=== PATIENT | female | born 1960 | race African-American/Black ===

== ENCOUNTER 2020-02-18 01:21 | Outpatient (CLI) | payer MEDICARE, MEDICAID, SELFPAY ==
[2020-02-18 19:24] LABS: SARS-CoV-2 RNA PCR Negative
== END 2020-02-18 01:22 | disposition home or self-care (01) ==
LOC: ANHCOVIDDT 01:21
PROVIDERS: PCP Internal Medicine; Visit Provider Internal Medicine Gastroenterology
DX: Z01.812 Encounter for preprocedural laboratory examination (principal); Z20.828 Contact with and (suspected) exposure to other viral communicable diseases
CPT/HCPCS: 87635; C9803; U0003

== ENCOUNTER 2020-02-20 01:28 | Day surgery (SDC) | payer MEDICARE, MEDICAID, SELFPAY ==
[2020-02-17 14:45] VITALS: BMI 41.6
[2020-02-20 06:27] VITALS: BP 140/94; PULSE 63; RESP 16; TEMP 36.3; O2SAT 100; BMI 32.5
[2020-02-20] MEDS: LACTATED RINGERS 1,000 ML 150 ML IV CONT (06:40)
--- NOTE | 2020-02-20 07:16 | P.PNAN_ITS ---
Anes - Initial Pre Proc Eval Procedure: Operation Date: 02/20/20 07:30 Proposed Procedures p Esophagogastroduodenoscopy&Screen Colon - Stewart Villegas MD Date/Time: 02/20/20 07:16 Surgeon: Stewart Villegas MD Pre Op Diagnosis: Hx Of Colon CA, GERD Patient Data Age: 59 Gender: F Height: 5 ft 6 in Weight: 91.5 kg Last Vital Signs Temp 97.3 F L 02/20/20 06:27 Pulse 63 02/20/20 06:27 Resp 16 02/20/20 06:27 BP 140/94 H 02/20/20 06:27 Pulse Ox 100 02/20/20 06:27 Allergies Allergy/AdvReac Type Severity Reaction Status Date / Time No Known Drug Allergies Allergy Unknown Unknown Verified 02/20/20 06:25 Home Medications Medication Instructions Recorded Confirmed Type ergocalciferol (vitamin D2) 1,250 50,000 unit PO MONTHLY 05/17/19 02/20/20 History mcg (50,000 unit) capsule fenofibrate 160 mg tablet 160 mg PO DAILY #30 tablet 11/21/19 02/20/20 Rx alprazolam 2 mg PO DAILY 02/17/20 02/20/20 History omeprazole 20 mg PO DAILY 02/17/20 02/20/20 History quetiapine 300 mg PO HS 02/17/20 02/20/20 History venlafaxine 75 mg PO DAILY PRN 02/17/20 02/20/20 History Patient hx anesthesia problems: none Family hx anesthesia problems: none PMFSH Social History Social History (Reviewed 12/17/19 @ 14:10 by Chiquita Rey [facility]) Smoking status: Never smoker Second hand tobacco smoke exposure: No Alcohol intake: current Substance use: never Substance use type: does not use Living arrangements: with family Spiritual care concerns: No Anes - Eval Final PreProcedure Day of Procedure 02/20/20 07:16 Patient weight: obese Heart: regular rate and rhythm Lungs: clear to auscultation Airway: Mallampati scale (upper front loose) class II Neurological: alert and oriented Last oral intake: >/= 8 hours ASA classification: III Emergent: no Anesthetic plan: proceed Anesthesia type and monitoring: general GIVS and standard monitoring Informed Consent: The patient's anesthetic plan and its attendant risks and benefits were discussed with the patient/family/POA. Questions were solicited and answers provided to the satisfaction of the patient/family/POA.
[2020-02-20 07:57] VITALS: BP 110/74; PULSE 68; RESP 19; O2SAT 98
--- NOTE | 2020-02-20 08:00 | WPDGICN ---
Assessment and Plan Assessment and plan (1) Personal history of other malignant neoplasm of large intestine: Code(s): Z85.038 - Personal history of other malignant neoplasm of large intestine Status: Acute Assessment and Plan: Patient has a history of colon cancer status post resection. Plan is for surveillance colonoscopy now and at 3-5 year intervals in the future. (2) Gastro-esophageal reflux disease without esophagitis: Code(s): K21.9 - Gastro-esophageal reflux disease without esophagitis Status: Acute Assessment and Plan: Patient with a history of GE reflux disease. She has a history of esophageal ulceration. Plan is for EGD to assess this at the present time period is uncertain how this relates to her current pain. Continue omeprazole 20 mg p.o. daily. (3) Bipolar disorder, current episode depressed, mild or moderate severity, unspecified: Code(s): F31.30 - Bipolar disorder, current episode depressed, mild or moderate severity, unspecified Status: Acute (4) Chronic hepatitis C without hepatic coma: Code(s): B18.2 - Chronic viral hepatitis C Status: Acute Assessment and Plan: Hepatitis C apparently followed at [facility] in felt to be treated. Continued follow-up with their service advised. Additional Plan Patient does report pain that radiates down her left leg. See adequate should be considered. Patient will follow up with primary care service for evaluation of this. GI Consult Note Consult date/time: 02/20/20 08:00 HPI: Ruba Ham is a 59 year old female Seen in evaluation at the request of Dr Persaud. patient complains of pain in her side. She also has a pain that radiates down the back of her left leg. Patient has a history of colon cancer resected in 1999 now 11. She has been treated for GE reflux disease she does note occasional dysphagia endoscopy in 2013 revealed ulcerative esophagitis. She recently is status post treatment for hepatitis C at [facility]. She continues to take omeprazole 20 mg p.o. daily without relief of symptoms. She is referred today for GI endoscopy to evaluate her known history of GE reflux disease and distant history of colon cancer. Review of Systems Review of Systems: All systems reviewed & are unremarkable except as noted in HPI and below PMFSH Social History Social History Smoking status: Never smoker Second hand tobacco smoke exposure: No Alcohol intake: current Substance use: never Substance use type: does not use Living arrangements: with family Spiritual care concerns: No Meds Home Medications and Allergies Home Medications Medication Instructions Recorded Confirmed Type ergocalciferol (vitamin D2) 1,250 50,000 unit PO MONTHLY 05/17/19 02/20/20 History mcg (50,000 unit) capsule fenofibrate 160 mg tablet 160 mg PO DAILY #30 tablet 11/21/19 02/20/20 Rx alprazolam 2 mg PO DAILY 02/17/20 02/20/20 History omeprazole 20 mg PO DAILY 02/17/20 02/20/20 History quetiapine 300 mg PO HS 02/17/20 02/20/20 History venlafaxine 75 mg PO DAILY PRN 02/17/20 02/20/20 History Allergies Allergy/AdvReac Type Severity Reaction Status Date / Time No Known Drug Allergies Allergy Unknown Unknown Verified 02/20/20 06:25 Vital Signs Vital Signs - 24 hr 02/20/20 06:27 Temperature 97.3 F L Pulse Rate 63 Respiratory Rate 16 Blood Pressure 140/94 H Pulse Oximetry 100 Exam Narrative: Exam Narrative: Physical exam reveals patient to be alert. Vital signs stable. HEENT exam unremarkable. She is anicteric. Lungs are clear to auscultation and percussion. Heart is without murmur or extra sounds. Abdominal exam bowel sounds are present soft nontender with no organomegaly. Digital external rectal exam normal.
[2020-02-20 08:07] VITALS: BP 125/80; PULSE 73; RESP 19; O2SAT 97
[2020-02-20 08:17] VITALS: BP 106/59; PULSE 66; RESP 19; O2SAT 100
== END 2020-02-20 08:38 | disposition home or self-care (01) ==
PROVIDERS: PCP Internal Medicine; Visit Provider Internal Medicine Gastroenterology
PROC: 0DJ08ZZ Inspection of Upper Intestinal Tract, Via Natural or Artificial Opening Endoscopic (ICD-10-PCS; CPT 43235; principal; 2020-02-20 07:30)
DX: Z12.11 Encounter for screening for malignant neoplasm of colon (principal); Z98.0 Intestinal bypass and anastomosis status; Z85.038 Personal history of other malignant neoplasm of large intestine; Z90.49 Acquired absence of other specified parts of digestive tract; F31.30 Bipolar disorder, current episode depressed, mild or moderate severity, unspecified; B18.2 Chronic viral hepatitis C; K21.9 Gastro-esophageal reflux disease without esophagitis; E66.9 Obesity, unspecified; Z68.32 Body mass index [BMI] 32.0-32.9, adult
CPT/HCPCS: 45378; 87081; J2704; J7120

== ENCOUNTER 2021-11-16 07:16 | Outpatient (CLI) | payer MEDICARE, MEDICAID, SELFPAY ==
--- NOTE | ~2021-11-16 | US_ITS ---
US abdomen complete EXAMINATION: US Abdomen Complete INDICATION: Abdomen pain PROCEDURE: Realtime High Resolution abdomen ultrasound. COMPARISON: No prior studies for comparison FINDINGS: Gallbladder within normal limits. No gallstones, pericholecystic fluid, gallbladder wall t hickening or biliary dilatation. Common bile duct measures 4 mm. Liver echotexture within normal limits without focal mass. Pancreas within normal limits. Pancreati c tail is obscured by bowel gas. Spleen is unremarkeable. Renal echotexture is within normal limits bilaterally without hydronephrosis, contour deforming mass or renal stone. Right kidney measures 10.7 cm. Left kidney measures 9.6 cm. There is a right renal cyst measuring 1 cm. Visualized aspects of the aorta and IVC are within normal limits. Portal vein is patent. No sonograph ic Valentino's sign indicated by the technologist. IMPRESSION: 1: Unremarkable abdominal ultrasound. Reviewed, dictated and finalized at location A.
[2021-11-16 08:58] LABS: Alanine Aminotransferase 15 U/L (6-35); Albumin Level 4.6 g/dL (3.5-5.1); Alkaline Phosphatase 94 U/L (38-126); Anion Gap 3 mmol/L (8-16); Aspartate Amino Transferase 31 U/L (14-36); Bilirubin,Total 0.5 mg/dL (0.2-1.3); Blood Urea Nitrogen 13 mg/dL (7-17); Calcium 8.7 mg/dL (8.4-10.2); Carbon Dioxide 29 mmol/L (22-30); Chloride 107 mmol/L (98-107); Cholesterol 207 mg/dL (0-200); Estimated Glomerular Filt Rate > 60; Glucose 111 mg/dL (65-110); HDL Direct 71 mg/dL; Potassium 3.4 mmol/L (3.4-5.0); Sodium 139 mmol/L (137-145); Triglycerides 352 mg/dL (<150)
[2021-11-16 09:10] LABS: LDL Cholesterol Direct 42 mg/dL
[2021-11-16 09:22] LABS: Vitamin D 25 Hydroxy 16.2 ng/mL
== END 2021-11-16 07:17 | disposition home or self-care (01) ==
PROVIDERS: Nurse Practitioner; PCP Internal Medicine; Visit Provider Internal Medicine
DX: E55.9 Vitamin D deficiency, unspecified (principal); N28.1 Cyst of kidney, acquired; E78.5 Hyperlipidemia, unspecified; R10.9 Unspecified abdominal pain
CPT/HCPCS: 36415; 76700; 80053; 80061; 82306

== ENCOUNTER 2022-07-08 02:15 | Day surgery (SDC) | payer MEDICARE, MEDICAID, SELFPAY ==
[2022-06-15 10:09] VITALS: BMI 30.2
[2022-07-08 11:21] VITALS: BP 159/83; PULSE 100; RESP 20; TEMP 36.2; O2SAT 100; BMI 29.9
[2022-07-08] MEDS: LACTATED RINGERS 1,000 ML 150 ML IV CONT (11:33)
--- NOTE | 2022-07-08 11:37 | WPDANESEPPF ---
Anes - Initial Pre Proc Eval Procedure: Operation Date: 07/08/22 11:30 Proposed Procedures p Screening Colonoscopy - Stewart Villegas MD Date/Time: 07/08/22 11:37 Surgeon: Stewart Villegas MD Pre Op Diagnosis: hx colon ca Patient Data Age: 61 Gender: F Height: 1.68 m Weight: 84 kg Last Vital Signs Temp 36.2 C L 07/08/22 11:21 Pulse 100 07/08/22 11:21 Resp 20 07/08/22 11:21 BP 159/83 H 07/08/22 11:21 Pulse Ox 100 07/08/22 11:21 O2 Del Method Room Air 07/08/22 11:21 Allergies Allergy/AdvReac Type Severity Reaction Status Date / Time No Known Drug Allergies Allergy Unknown Unknown Verified 06/27/22 13:59 Home Medications Medication Instructions Recorded Confirmed Type venlafaxine 75 mg capsule,extended 75 mg PO DAILY PRN Anxiety 02/17/20 06/27/22 History release 24 hr colchicine 0.6 mg tablet 0.6 mg PO BID #180 tabs 10/06/21 06/27/22 Rx icosapent ethyl 1 gram capsule 2 g PO BID #360 caps 11/18/21 06/27/22 Rx (Vascepa) ergocalciferol (vitamin D2) 1,250 50,000 unit PO WEEKLY #4 caps 05/30/22 06/27/22 Rx mcg (50,000 unit) capsule (Vitamin D2) meloxicam 7.5 mg tablet 7.5 mg PO DAILY #30 tabs 05/30/22 06/27/22 Rx sodium,potassium,mag sulfates 17.5 See Rx Instructions PO .COMPLEX 06/10/22 Rx gram-3.13 gram-1.6 gram oral soln #354 mL (Suprep Bowel Prep Kit) omeprazole 20 mg capsule,delayed 20 mg PO BID 06/15/22 06/27/22 History release quetiapine 300 mg tablet 600 mg PO HS 06/15/22 06/27/22 History rosuvastatin 40 mg tablet 40 mg PO DAILY #90 tabs 07/05/22 07/08/22 Rx alprazolam 2 mg tablet 2 mg PO DAILY PRN anxiety #30 tabs 07/08/22 07/08/22 Rx Patient hx anesthesia problems: none Family hx anesthesia problems: none Results Review: All pre-operative results and documents have been reviewed as part of the pre-operative evaluation. [facility] Past Medical History Medical History Chronic pain of both knees Colon cancer Gout Surgical History Surgical History (Updated 07/08/22 @ 11:37 by Chris Lemon MD) History of partial colectomy Family History Family History Mother Patient's mother is in good health Carcinoma of colon Sibling Patient's sister is in good health Patient's brother is in good health Father Family history of malignant neoplasm Patient's father is Carcinoma of colon Grandparent Carcinoma of colon Social History Social History Smoking status: Never smoker Second hand tobacco smoke exposure: No Alcohol intake: current Alcohol use details: Social Substance use: never Substance use type: does not use Living arrangements: with family Spiritual care concerns: No Anes - Eval Final PreProcedure Day of Procedure 07/08/22 11:37 Patient weight: overweight Heart: regular rate and rhythm Lungs: clear to auscultation Airway: Mallampati scale class II Neurological: alert and oriented Last oral intake: >/= 8 hours ASA classification: III Emergent: no Anesthetic plan: proceed Anesthesia type and monitoring: general GIVS and standard monitoring Results Review: All pre-operative results and documents have been reviewed as part of the pre-operative evaluation. Informed Consent: The patient's anesthetic plan and its attendant risks and benefits were discussed with the patient/family/POA. Questions were solicited and answers provided to the satisfaction of the patient/family/POA.
--- NOTE | 2022-07-08 11:54 | PM.HPGS ---
History of Present Illness History of Present Illness Consent: Risks, benefits, and alternatives have been discussed and questions answered. Patient agrees to proceed with procedure. Chief complaint: hx colon ca Narrative: Ruba Ham is a 61 year old female Presents for screening colonoscopy. Patient's current weight appetite and bowel movements are normal. Patient denies abdominal pain. She has had no bleeding. Patient has a history of colon cancer resected 2010. Both her father and grandfather have had colon cancer as well. Patient presents today for screening exam. Recent screening exams have been unremarkable. Review of Systems Review of Systems: Review of systems noncontributory. [facility] Past Medical History Medical History Chronic pain of both knees Colon cancer Gout Surgical History Surgical History (Updated 07/08/22 @ 11:37 by Chris Lemon MD) History of partial colectomy Family History Family History Mother Patient's mother is in good health Carcinoma of colon Sibling Patient's sister is in good health Patient's brother is in good health Father Family history of malignant neoplasm Patient's father is Carcinoma of colon Grandparent Carcinoma of colon Social History Social History Smoking status: Never smoker Second hand tobacco smoke exposure: No Alcohol intake: current Alcohol use details: Social Substance use: never Substance use type: does not use Living arrangements: with family Spiritual care concerns: No Meds Home Medications and Allergies Home Medications Medication Instructions Recorded Confirmed Type venlafaxine 75 mg capsule,extended 75 mg PO DAILY PRN Anxiety 02/17/20 06/27/22 History release 24 hr colchicine 0.6 mg tablet 0.6 mg PO BID #180 tabs 10/06/21 06/27/22 Rx icosapent ethyl 1 gram capsule 2 g PO BID #360 caps 11/18/21 06/27/22 Rx (Vascepa) ergocalciferol (vitamin D2) 1,250 50,000 unit PO WEEKLY #4 caps 05/30/22 06/27/22 Rx mcg (50,000 unit) capsule (Vitamin D2) meloxicam 7.5 mg tablet 7.5 mg PO DAILY #30 tabs 05/30/22 06/27/22 Rx sodium,potassium,mag sulfates 17.5 See Rx Instructions PO .COMPLEX 06/10/22 Rx gram-3.13 gram-1.6 gram oral soln #354 mL (Suprep Bowel Prep Kit) omeprazole 20 mg capsule,delayed 20 mg PO BID 06/15/22 06/27/22 History release quetiapine 300 mg tablet 600 mg PO HS 06/15/22 06/27/22 History rosuvastatin 40 mg tablet 40 mg PO DAILY #90 tabs 07/05/22 07/08/22 Rx alprazolam 2 mg tablet 2 mg PO DAILY PRN anxiety #30 tabs 07/08/22 07/08/22 Rx Allergies Allergy/AdvReac Type Severity Reaction Status Date / Time No Known Drug Allergies Allergy Unknown Unknown Verified 06/27/22 13:59 Vital Signs Vital Signs - 24 hr 07/08/22 11:21 Temperature 97.2 F L Pulse Rate 100 Respiratory Rate 20 Blood Pressure 159/83 H Pulse Oximetry 100 Oxygen Delivery Room Air Exam Narrative: Physical exam reveals patient to be alert. Vital signs stable. HEENT exam is unremarkable. Patient is anicteric. Lungs are clear to auscultation and percussion. Heart is without murmur or extra sounds. Abdomen bowel sounds present soft nontender with no organomegaly. Digital external rectal exam is normal. Assessment and Plan Assessment and plan (1) Personal history of other malignant neoplasm of large intestine: Code(s): Z85.038 - Personal history of other malignant neoplasm of large intestine Status: Acute Assessment and Plan: Patient has a history of colon cancer status post resection 2010. Family history of colon cancer both father and grandfather. Plan for colonoscopy now and consider this at 3 year intervals. (2) Bipolar disorder, current episode depressed, mild or moderate severity,
[2022-07-08] MEDS: SIMETHICONE ORAL SUSPENSION 20 MG/0.3 ML 30 ML BOTTLE 0.6 ML IRRIGATION (12:09)
[2022-07-08 12:19] VITALS: BP 153/87; PULSE 65; RESP 26; O2SAT 99
[2022-07-08 12:29] VITALS: BP 145/94; PULSE 64; RESP 18; O2SAT 99
[2022-07-08 12:39] VITALS: BP 139/83; PULSE 62; RESP 18; O2SAT 100
== END 2022-07-08 12:57 | disposition home or self-care (01) ==
PROVIDERS: PCP Internal Medicine; Visit Provider Internal Medicine Gastroenterology
PROC: 0DJD8ZZ Inspection of Lower Intestinal Tract, Via Natural or Artificial Opening Endoscopic (ICD-10-PCS; CPT 45378; principal; 2022-07-08 11:30)
DX: Z12.11 Encounter for screening for malignant neoplasm of colon (principal); K64.8 Other hemorrhoids; Z85.038 Personal history of other malignant neoplasm of large intestine; Z98.0 Intestinal bypass and anastomosis status; Z90.49 Acquired absence of other specified parts of digestive tract
CPT/HCPCS: G0105; J2704; J7120